=== PATIENT | male | born 1970 | race Caucasian/White ===

== ENCOUNTER 2022-08-19 07:41 | Day surgery (SDC) | payer OTHER, SELFPAY ==
[2022-08-12 10:18] VITALS: BMI 32.8
[2022-08-19 07:15] VITALS: BP 150/109; PULSE 73; RESP 20; TEMP 36.5; O2SAT 98
--- NOTE | 2022-08-19 08:07 | WPDHPUPDATE1 ---
History and Physical Update Update Date/Time: 08/19/22 08:07 History and Physical has been reviewed, including an updated exam of the patient. There are NO changes in the patient's condition. Risks, benefits, and alternatives have been discussed and questions answered. Patient agrees to proceed with procedure.
--- NOTE | 2022-08-19 08:28 | P.PNAN_ITS ---
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 [facility] Past Medical History Medical History (Updated 08/03/22 @ 17:26 by Marcos Guerrero MD) BMI 35.0-35.9,adult Cataract, left Colon cancer screening Obesity Screening for lipid disorders Social History Social History Smoking status: Never smoker Second hand tobacco smoke exposure: No Alcohol intake: never Alcohol use details: 1-2 week Substance use: never Substance use type: does not use Living arrangements: with family Spiritual care concerns: No Anes - Eval Final PreProcedure Day of Procedure 08/19/22 08:28 Patient weight: obese Heart: regular rate and rhythm Lungs: clear to auscultation Airway: Mallampati scale Neurological: alert and oriented Last oral intake: >/= 8 hours ASA classification: II Emergent: no Anesthetic plan: proceed Anesthesia type and monitoring: monitored anesthesia care and standard monitoring Results Review: All pre-operative results and documents have been reviewed as part of the pre- operative evaluation. Informed Consent: The patient's anesthetic plan and its attendant risks and benefits were discussed with the patient/family/POA. Questions were solicited and answers provided to the satisfaction of the patient/family/POA.
[2022-08-19] MEDS: OFLOXACIN 0.3% OPHTH SOLN 5 ML BTL 1 DROP AFFCTD EYE (08:32)
[2022-08-19] MEDS: TETRACAINE HCL 0.5% OPHTH SOLN 4 ML BTL 1 DROP AFFCTD EYE ×3 (08:32→08:42)
[2022-08-19] MEDS: LIDOCAINE HCL 2% JELLY 5 ML TUBE 1 APPLIC AFFCTD EYE (09:08)
[2022-08-19] MEDS: LIDOCAINE HCL 1% PF INJ 5 ML VIAL 1 ML INTRAOCULA (09:22)
[2022-08-19] MEDS: NEOMYCIN/POLYMYXIN/DEXAMETH OP OINT 3.5 GM TUBE 1 APPLIC AFFCTD EYE (09:32)
[2022-08-19] MEDS: HOME MEDICATION 1 EACH AFFCTD EYE (09:32)
[2022-08-19 09:40] VITALS: BP 139/80; PULSE 65; RESP 16; O2SAT 97
[2022-08-19] MEDS: acetaZOLAMIDE TAB 250 MG TABLET PO (09:51)
--- NOTE | 2022-08-19 11:47 | W.PM.PROC2 ---
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 After intravenous sedation and placement of monitors, the patient was prepped and draped in the usual sterile manner. A lid speculum was placed. A paracentesis was made, and preservative free 1% lidocaine was instilled in the anterior chamber. The anterior chamber was then filled with Viscoat viscoelastic. A sybil keratome was used to create the wound. Continuous tear anterior capsulotomy was performed. The lens was hydro dissected before being removed with phacoemulsification. The remaining lenticular cortex was removed with aspiration. The capsular bag was polished and filled with viscoelastic material. An intraocular lens was chosen, inspected, irrigated and placed within the capsular bag where it was seen to be centered and stable. The viscoelastic material was aspirated. The wound was closed and found to be watertight. Ciloxan drops were placed in the eye. The speculum was removed. A Zuniga shield was applied. The patient tolerated the procedure well and left the operating room in satisfactory condition. Implants See chart Complications None Condition Stable Disposition Same day
--- NOTE | 2022-08-19 11:51 | WPDANESPN ---
Anes - Prog Note Post-Op Date/Time: 08/19/22 11:51 Cardiovascular status: normal Respiratory status: normal Airway patency: baseline Mental status: baseline Post-Op hydration status: normal Vital Signs: Last Vital Signs Temp 36.5 C 08/19/22 07:15 Pulse 65 08/19/22 09:40 Resp 16 08/19/22 09:40 BP 139/80 08/19/22 09:40 Pulse Ox 97 08/19/22 09:40 O2 Del Method Room Air 08/19/22 09:40 Pain Score (VAS): 0 Post-procedural complaints: none Patient Feedback: Patient satisfied with anesthetic care.
== END 2022-08-19 10:00 | disposition home or self-care (01) ==
PROVIDERS: PCP Family Medicine; Visit Provider Student in an Organized Health Care Education/Training Program
PROC: (CPT 66983; principal; 2022-08-19 08:50)
DX: H25.12 Age-related nuclear cataract, left eye (principal)
CPT/HCPCS: 66984